=== PATIENT | female | born 1950 | race Caucasian/White ===

== ENCOUNTER 2021-10-06 13:22 | Outpatient (CLI) | payer MEDICARE, SELFPAY ==
--- NOTE | ~2021-10-06 | CT_ITS ---
EXAMINATION:CT lung screening DATE: 10/06/2021 13:50 INDICATION: Cigarette nicotine dependence with nicotine-induced disorder. Current smoker with 50 pack year history. TECHNIQUE: Computed tomography (CT) of the chest was performed without intravenous contrast. Automate d exposure control and iterative reconstruction technique were employed. The dose-length product (DLP ) was 68.14 mGy-cm. COMPARISON: Chest CT 12/14/2013 FINDINGS: There is moderate emphysema. A calcified right lung nodule and calcified right hilar lymph nodes are consistent with old granulomatous disease. There is a new 16 mm nodule in right upper lobe. There is a new 4 mm nodule in left upper lobe. There is a 3 mm nodule left lower lobe. No pleural ef fusion. The heart size is normal. There are coronary artery calcifications. No pericardial effusion. There is a small sliding hiatal hernia. There is mild thoracic spondylosis. IMPRESSION: 1. Lung-RADS category 4B: Very suspicious. CT-guided biopsy of the right upper lobe nodule is recomme nded. I called this result to Susy Omer. Reviewed, dictated and finalized at location A. IMPRESSION: 1. Lung-RADS category 4B: Very suspicious. CT-guided biopsy of the right upper lobe nodule is recommended. I called this result to Susy Omer.
== END 2021-10-06 13:23 | disposition home or self-care (01) ==
PROVIDERS: PCP Physician Assistant; Visit Provider Physician Assistant
DX: Z12.2 Encounter for screening for malignant neoplasm of respiratory organs (principal); F17.219 Nicotine dependence, cigarettes, with unspecified nicotine-induced disorders; R91.8 Other nonspecific abnormal finding of lung field
CPT/HCPCS: 71271

== ENCOUNTER → 2021-10-15 11:13 | Outpatient (CLI) | payer MEDICARE, SELFPAY ==
--- NOTE | ~2021-10-15 | CT_ITS ---
EXAMINATION: CT lung screening DATE: 10/15/2021 11:30 INDICATION: Nicotine dependence, cigarettes, with unspecified nicotine-i TECHNIQUE: Computed tomography (CT) of the chest was performed without intravenous contrast. Addition al 3D reconstructions utilizing coronal maximum intensity projection (MIP) were performed. Automated exposure control and iterative reconstruction technique were employed. The dose-length product was 54 .41 mGy-cm. COMPARISON: 10/06/2021 FINDINGS: Moderate lower lumbar predominant emphysema. Calcified right and left lower lobe nodules along with c alcified mediastinal and right hilar lymph nodes and multiple splenic calcifications, all consistent with old granulomatous disease. No interval change in a 2.0 x 1.2 cm right upper lobe nodule. Also un changed are smaller 4 mm left upper lobe and 3 mm left lower lobe nodules. No pulmonary edema, pleura l effusion or pneumothorax. Heart size is normal. Atherosclerotic coronary artery calcifications and possibly coronary artery stenting. No pericardial effusion. Thoracic aorta is normal in caliber. No p athologically enlarged thoracic lymphadenopathy. Mild thoracic spondylosis. IMPRESSION: 1. Lung-RADS category 4B: Very suspicious. CT-guided biopsy of the right upper lobe nodule is recomme nded. Per prior report this was discussed with Susy Omer by Dr. Huynh on 10/06/2021. Reviewed, dictated and finalized at location B. IMPRESSION: 1. Lung-RADS category 4B: Very suspicious. CT-guided biopsy of the right upper lobe nodule is recommended. Per prior report this was discussed with Susy beltran by Dr. Huynh on 10/06/2021.
== END ==
PROVIDERS: PCP Physician Assistant; Visit Provider Physician Assistant
DX: Z12.2 Encounter for screening for malignant neoplasm of respiratory organs (principal); F17.210 Nicotine dependence, cigarettes, uncomplicated
CPT/HCPCS: 71271